=== PATIENT | male | born 1980 | race Caucasian/White ===

== ENCOUNTER 2024-11-22 20:43 | Inpatient (IN) | payer MEDICARE ==
[~2024-11-22] VITALS: Ht 185.4 cm; Wt 88.5 kg
[2024-11-23] MEDS: NS (Normal Saline) 0.9% 1,000 ML IV ONE (07:40)
[2024-11-23] MEDS ORDERED: JARD1TAB3 PO (09:26)
[2024-11-23] MEDS ORDERED: MELA3TAB30 PO (09:26)
[2024-11-23] MEDS ORDERED: ATOR80TA59 PO (09:26)
[2024-11-23] MEDS ORDERED: LEVE500T5 PO (09:26)
[2024-11-23] MEDS ORDERED: TORS5TAB2 PO (09:26)
[2024-11-23] MEDS ORDERED: TIRZ10PE SQ (09:26)
[2024-11-23] MEDS ORDERED: ENTR1TAB PO (09:26)
[2024-11-23] MEDS ORDERED: AMLO1TAB24 PO (09:26)
[2024-11-23] MEDS ORDERED: CALC1CAP31 PO (09:26)
[2024-11-23] MEDS ORDERED: CLAR10CA3 PO (09:26)
[2024-11-23] MEDS ORDERED: FAMO1TAB11 PO (09:26)
[2024-11-23] MEDS ORDERED: SENN-188 PO (09:26)
[2024-11-23] MEDS ORDERED: DICL20GE TOP (09:26)
[2024-11-23] MEDS ORDERED: DESV100T PO (09:26)
[2024-11-23] MEDS ORDERED: HYDR1CAP25 PO (09:26)
[2024-11-23] MEDS ORDERED: METO1TAB33 PO (09:26)
[2024-11-23] MEDS ORDERED: VASC1CAP2 PO (09:26)
[2024-11-23] MEDS ORDERED: METH-1165 PO (09:26)
[2024-11-23] MEDS ORDERED: SENN-52 PO (09:26)
[2024-11-23] MEDS ORDERED: ELIQ5TAB PO (09:26)
[2024-11-23] MEDS ORDERED: D-50TAB PO (09:26)
[2024-11-23] MEDS ORDERED: LOPE2TAB12 PO (09:26)
[2024-11-23] MEDS ORDERED: SENN-23 PO (09:26)
[2024-11-23] MEDS ORDERED: PEPT262S PO (09:26)
[2024-11-23] MEDS ORDERED: GABA-284 PO (09:26)
[2024-11-23] MEDS ORDERED: FINE10TA PO (09:26)
[2024-11-23] MEDS ORDERED: TRES1INJ2 SC (09:26)
[2024-11-23] MEDS ORDERED: FERR325T3 PO (09:26)
[2024-11-23] MEDS ORDERED: LACT1CAP53 PO (09:26)
[2024-11-23] MEDS ORDERED: HYDR-3713 PO (09:26)
[2024-11-23] MEDS ORDERED: PRAZ1CAP46 PO (09:26)
[2024-11-23] MEDS ORDERED: NOVOINJ3 SC (09:26)
[2024-11-23] MEDS ORDERED: HOME MED LIST COMPLETE! XX SCH (09:30)
[2024-11-23 09:41] LABS: BASO % 0.5 % (0.0-1.0); EOS % 0.1 % (0.0-3.0); HEMATOCRIT 41.5 % (42.0-52.0); LYMPH % 22.9 % (24.0-44.0); MEAN CORPUSCULAR HEMOGLOBIN 27.3 pg (27.0-33.0); MEAN CORPUSCULAR HGB CONC 33.7 g/dl (32.0-36.5); MEAN CORPUSCULAR VOLUME 80.9 fl (80.0-96.0); MONO # 0.5 10^3/uL (0.0-0.8); MONO % 5.8 % (2.0-8.0); NEUTROPHILS # 6.1 10^3/uL (1.5-8.5); NEUTROPHILS % 70.5 % (36.0-66.0); PLATELET COUNT, AUTOMATED 272 10^3/uL (150-450); RED BLOOD COUNT 5.13 10^6/uL (4.30-6.10); WHITE BLOOD COUNT 8.6 10^3/uL (4.0-10.0)
[2024-11-23 09:54] LABS: INR 1.24; PARTIAL THROMBOPLASTIN TIME 31.2 SECONDS (24.8-34.2); PROTHROMBIN TIME 15.9 SECONDS (12.5-14.5)
[2024-11-23 10:49] LABS: ALBUMIN 5.1 G/DL (3.2-5.2); BILIRUBIN,DIRECT 0.4 MG/DL (<0.4); BILIRUBIN,TOTAL 1.2 MG/DL (0.3-1.2); CALCIUM LEVEL 10.4 MG/DL (8.5-10.1); CREATININE FOR GFR 2.45 MG/DL (0.70-1.30); GLOMERULAR FILTRATION RATE 32.9 (>60); POTASSIUM SERUM 5.2 MMOL/L (3.5-5.1); TOTAL PROTEIN 7.9 G/DL (5.7-8.2)
[2024-11-23] MEDS ORDERED: PILL CUTTER 1 EACH XX PRN ×2 (10:50→12:55)
[2024-11-23 11:27] LABS: AMORPHOUS SEDIMENT SMALL (NEGATIVE); APPEARANCE, URINE HAZY (CLEAR); BACTERIA, URINE AUTO NEGATIVE (NEGATIVE); BILIRUBIN, URINE AUTO NEGATIVE (NEGATIVE); BLOOD, URINE BLOOD NEGATIVE (NEGATIVE); COLOR, URINE YELLOW (YELLOW); GLUCOSE, URINE (UA) AUTO 3+ mg/dL (NEGATIVE); KETONE, URINE AUTO 1+ mg/dL (NEGATIVE); LEUKOCYTE ESTERASE, URINE AUTO NEGATIVE (NEGATIVE); MUCUS, URINE SMALL (NEGATIVE); NITRITE, URINE AUTO NEGATIVE (NEGATIVE); PROTEIN, URINE AUTO 3+ mg/dL (NEGATIVE); RBC, URINE AUTO 1 /HPF (0-3); SPECIFIC GRAVITY URINE AUTO 1.017 (1.002-1.035); SQUAMOUS EPITHELIAL CELL UR AU 0 /HPF (0-6); UROBILINOGEN, URINE AUTO 0.2 mg/dL (0.0-2.0); WBC, URINE AUTO 0 /HPF (0-3)
[2024-11-23] MEDS: levETIRAcetam 250 MG TABLET PO ONE (11:35)
[2024-11-23] MEDS: amLODIPine 5 MG TAB PO ONE (11:37)
[2024-11-23] MEDS: APIXABAN 5 MG TAB PO ONE (11:37)
[2024-11-23] MEDS: TORSEMIDE 10 MG TABLET PO SCH (11:37)
[2024-11-23] MEDS: ENTRESTO 24-26 MG TABLET (SACUBITRIL/VALSARTAN) PO ONE (12:31)
[2024-11-23] MEDS ORDERED: DEXTROSE 50% 50 ML SYRINGE IV PRN (12:35)
[2024-11-23] MEDS ORDERED: SENNOSIDES/DOCUSATE SODIUM 8.6 MG/50MG TAB PO PRN (12:35)
[2024-11-23] MEDS ORDERED: GLUCAGON INJ 1 MG VIAL SC PRN (12:35)
[2024-11-23] MEDS ORDERED: GLUCOSE 4 GM CHEW PO PRN (12:35)
[2024-11-23 12:57] LABS: AMPHETAMINES LEVEL URINE NEGATIVE (NEGATIVE); BARBITURATES URINE NEGATIVE (NEGATIVE); BENZODIAZEPINES URINE NEGATIVE (NEGATIVE); COCAINE METABOLITE URINE NEGATIVE (NEGATIVE); METHADONE URINE NEGATIVE (NEGATIVE)
[2024-11-23 12:58] LABS: CANNABINOIDS URINE NEGATIVE (NEGATIVE); OPIATES URINE POSITIVE (NEGATIVE); PHENCYCLIDINE URINE NEGATIVE (NEGATIVE)
[2024-11-23 14:29] LABS: CHOLESTEROL RISK RATIO 3.6 (<5); HDL CHOLESTEROL 33.3 MG/DL (>40); LDL CHOLESTEROL 46.7 MG/DL (<100); NON-HDL-C 86.7 MG/DL; PERCENT SATURATION 14.9 % (19.7-50.0)
[2024-11-23 14:31] LABS: FERRITIN 453.9 NG/ML (10.5-307.3); FOLATE 14.43 NG/ML (>5.4)
[2024-11-23 14:38] LABS: HEMOGLOBIN A1c 5.7 % (4.0-6.0)
[2024-11-23 15:20] VITALS: BP 160/99; TEMP 97.7; O2SAT 100
[2024-11-23] MEDS: hydrOXYzine 25 MG TAB PO SCH (15:48)
[2024-11-23] MEDS: GABAPENTIN 400 MG CAP PO SCH (15:48)
[2024-11-23] MEDS: INSULIN LISPRO (NovoLOG) PER UNIT SC SCH ×2 (17:42→21:00)
[2024-11-23] MEDS: methocarbamoL 750 MG TAB PO PRN (17:42)
[2024-11-23 17:45] VITALS: BP 158/80
[2024-11-23 19:02] LABS: CK-MB VALUE MASS 1.6 NG/ML (<3.6)
[2024-11-23 19:03] LABS: MB/CK RELATIVE INDEX 0.39 (< OR =4)
[2024-11-23 19:47] VITALS: BP 142/98; TEMP 97.9; O2SAT 100
[2024-11-23 20:00] VITALS: O2SAT 100
[2024-11-23] MEDS: METOPROLOL SUCC. 100 MG *XL* TAB PO SCH (20:40)
[2024-11-23] MEDS: FERROUS SULFATE 325 MG TAB PO SCH (20:42)
[2024-11-23] MEDS: PRAZOSIN 1 MG CAP PO SCH (20:43)
[2024-11-23] MEDS: CALCITRIOL 0.25 MCG CAP (S0169) PO SCH (20:43)
[2024-11-23] MEDS: APIXABAN 5 MG TAB PO SCH (20:43)
[2024-11-24 03:18] LABS: CK-MB VALUE MASS 1.8 NG/ML (<3.6)
[2024-11-24 03:19] LABS: MB/CK RELATIVE INDEX 0.48 (< OR =4)
[2024-11-24 04:06] VITALS: BP 152/97; TEMP 97.7; O2SAT 99
[2024-11-24 06:30] LABS: HEMATOCRIT 34.9 % (42.0-52.0); HEMOGLOBIN 11.8 g/dl (13.5-17.5); MEAN CORPUSCULAR HEMOGLOBIN 27.3 pg (27.0-33.0); MEAN CORPUSCULAR HGB CONC 33.8 g/dl (32.0-36.5); MEAN CORPUSCULAR VOLUME 80.6 fl (80.0-96.0); PLATELET COUNT, AUTOMATED 215 10^3/uL (150-450); RED BLOOD COUNT 4.33 10^6/uL (4.30-6.10); WHITE BLOOD COUNT 6.1 10^3/uL (4.0-10.0)
[2024-11-24 07:11] LABS: CREATININE FOR GFR 2.08 MG/DL (0.70-1.30); MAGNESIUM LEVEL 2.8 MG/DL (1.8-2.4); POTASSIUM SERUM 4.2 MMOL/L (3.5-5.1)
[2024-11-24] MEDS ORDERED: ACETAMINOPHEN 325 MG TAB PO PRN (08:15)
[2024-11-24] MEDS: amLODIPine 5 MG TAB PO SCH (08:38)
[2024-11-24] MEDS: FAMOTIDINE 20 MG TAB PO SCH (08:39)
[2024-11-24] MEDS: DESVENLAFAXINE 50 MG PO SCH (08:39)
[2024-11-24] MEDS: ATORVASTATIN 20 MG TAB PO SCH (08:40)
[2024-11-24 11:01] LABS: CK-MB VALUE MASS 1.7 NG/ML (<3.6)
[2024-11-24 11:10] LABS: MB/CK RELATIVE INDEX 0.44 (< OR =4)
[2024-11-24 12:00] VITALS: BP 150/94; TEMP 97.7; O2SAT 94
[2024-11-24] MEDS: VITAMIN D 1,000 INTERNATIONAL UNITS TABLET PO SCH (12:20)
[2024-11-24 20:07] VITALS: BP 165/99; TEMP 97.7; O2SAT 100
[2024-11-25 03:34] VITALS: BP 159/98; TEMP 97.5; O2SAT 98
[2024-11-25 04:00] VITALS: O2SAT 98
[2024-11-25 06:45] LABS: HEMATOCRIT 37.9 % (42.0-52.0); HEMOGLOBIN 12.4 g/dl (13.5-17.5); MEAN CORPUSCULAR HEMOGLOBIN 26.5 pg (27.0-33.0); MEAN CORPUSCULAR HGB CONC 32.7 g/dl (32.0-36.5); PLATELET COUNT, AUTOMATED 237 10^3/uL (150-450); RED BLOOD COUNT 4.68 10^6/uL (4.30-6.10); WHITE BLOOD COUNT 6.7 10^3/uL (4.0-10.0)
[2024-11-25 07:14] LABS: CREATININE FOR GFR 1.88 MG/DL (0.70-1.30); GLOMERULAR FILTRATION RATE 45.2 (>60); MAGNESIUM LEVEL 2.5 MG/DL (1.8-2.4); POTASSIUM SERUM 4.1 MMOL/L (3.5-5.1)
[2024-11-25] MEDS: HYDROCODONE/ACETAMINOPHEN 5/325 MG TABLET PO PRN (09:22)
[2024-11-25 12:00] VITALS: BP 155/98; TEMP 97.5; O2SAT 99
[2024-11-25 20:00] VITALS: BP 153/97; TEMP 97.5; O2SAT 96
[2024-11-25] MEDS: levETIRAcetam 250 MG TABLET PO SCH (21:55)
[2024-11-25] MEDS: amLODIPine 5 MG TAB PO SCH (21:56)
[2024-11-25] MEDS: SENNOSIDES/DOCUSATE SODIUM 8.6 MG/50MG TAB PO SCH (21:58)
[2024-11-26 04:00] VITALS: BP 138/89; TEMP 97.3; O2SAT 94
[2024-11-26 05:40] LABS: HEMATOCRIT 33.9 % (42.0-52.0); HEMOGLOBIN 11.6 g/dl (13.5-17.5); MEAN CORPUSCULAR HEMOGLOBIN 27.3 pg (27.0-33.0); MEAN CORPUSCULAR HGB CONC 34.2 g/dl (32.0-36.5); MEAN CORPUSCULAR VOLUME 79.8 fl (80.0-96.0); PLATELET COUNT, AUTOMATED 213 10^3/uL (150-450); RED BLOOD COUNT 4.25 10^6/uL (4.30-6.10); WHITE BLOOD COUNT 5.6 10^3/uL (4.0-10.0)
[2024-11-26 06:04] LABS: CALCIUM LEVEL 8.9 MG/DL (8.5-10.1); CREATININE FOR GFR 1.77 MG/DL (0.70-1.30); GLOMERULAR FILTRATION RATE 48.6 (>60); POTASSIUM SERUM 4.3 MMOL/L (3.5-5.1)
[2024-11-26] MEDS: LanTUS (INSULIN GLARGINE INJ) 1 UNITS/0.01 ML SC SCH (09:26)
[2024-11-26 12:00] VITALS: BP 128/86; TEMP 97.5; O2SAT 98
[2024-11-26 19:35] VITALS: BP 160/99; TEMP 97.9; O2SAT 98
[2024-11-27 04:13] VITALS: BP 153/98; TEMP 97.7; O2SAT 96
[2024-11-27 06:01] LABS: HEMATOCRIT 35.2 % (42.0-52.0); HEMOGLOBIN 11.9 g/dl (13.5-17.5); MEAN CORPUSCULAR HEMOGLOBIN 26.8 pg (27.0-33.0); MEAN CORPUSCULAR HGB CONC 33.8 g/dl (32.0-36.5); MEAN CORPUSCULAR VOLUME 79.3 fl (80.0-96.0); PLATELET COUNT, AUTOMATED 230 10^3/uL (150-450); RED BLOOD COUNT 4.44 10^6/uL (4.30-6.10); WHITE BLOOD COUNT 7.1 10^3/uL (4.0-10.0)
[2024-11-27 06:40] LABS: CALCIUM LEVEL 8.8 MG/DL (8.5-10.1); CREATININE FOR GFR 1.89 MG/DL (0.70-1.30); GLOMERULAR FILTRATION RATE 44.9 (>60); POTASSIUM SERUM 4.3 MMOL/L (3.5-5.1)
[2024-11-27 12:00] VITALS: BP 145/91; TEMP 97.7; O2SAT 98
[2024-11-27] MEDS: TORSEMIDE 20 MG TAB PO ONE (15:32)
[2024-11-27 21:00] VITALS: BP 143/91; TEMP 97.7; O2SAT 98
[2024-11-27 21:27] VITALS: BP 141/90; TEMP 97.5; O2SAT 96
[2024-11-27] MEDS: ENTRESTO 24-26 MG TABLET (SACUBITRIL/VALSARTAN) PO SCH (22:32)
[2024-11-27] MEDS: LanTUS (INSULIN GLARGINE INJ) 1 UNITS/0.01 ML SC SCH (22:35)
[2024-11-28 03:22] VITALS: BP 117/76; TEMP 97.5; O2SAT 96
[2024-11-28 06:29] LABS: HEMOGLOBIN 11.6 g/dl (13.5-17.5); MEAN CORPUSCULAR HEMOGLOBIN 26.9 pg (27.0-33.0); MEAN CORPUSCULAR HGB CONC 34.1 g/dl (32.0-36.5); MEAN CORPUSCULAR VOLUME 78.9 fl (80.0-96.0); PLATELET COUNT, AUTOMATED 205 10^3/uL (150-450); RED BLOOD COUNT 4.31 10^6/uL (4.30-6.10); WHITE BLOOD COUNT 5.4 10^3/uL (4.0-10.0)
[2024-11-28 06:51] LABS: CALCIUM LEVEL 8.7 MG/DL (8.5-10.1); CREATININE FOR GFR 2.21 MG/DL (0.70-1.30); GLOMERULAR FILTRATION RATE 37.2 (>60); POTASSIUM SERUM 4.1 MMOL/L (3.5-5.1)
[2024-11-28] MEDS ORDERED: ELIQ5TAB PO (07:55)
[2024-11-28] MEDS ORDERED: PRAZ1CAP46 PO (07:55)
[2024-11-28] MEDS ORDERED: AMLO1TAB24 PO (07:55)
[2024-11-28] MEDS ORDERED: HYDR1CAP25 PO ×2 (07:55→19:05)
[2024-11-28] MEDS ORDERED: DESV100T PO (07:55)
[2024-11-28] MEDS ORDERED: FAMO1TAB11 PO (07:55)
[2024-11-28] MEDS ORDERED: GABA-284 PO ×2 (07:55→19:03)
[2024-11-28] MEDS ORDERED: METO1TAB33 PO (07:55)
[2024-11-28] MEDS ORDERED: LEVE500T5 PO (07:55)
[2024-11-28] MEDS: LanTUS (INSULIN GLARGINE INJ) 1 UNITS/0.01 ML SC SCH (08:55)
[2024-11-28 08:57] VITALS: BP 113/74
[2024-11-28] MEDS: amLODIPine 5 MG TAB PO SCH (08:57)
[2024-11-28] MEDS ORDERED: LanTUS (INSULIN GLARGINE INJ) 1 UNITS/0.01 ML SC SCH (09:00)
[2024-11-28] MEDS: TORSEMIDE 10 MG TABLET PO SCH (09:00)
[2024-11-28 12:00] VITALS: BP 126/85; TEMP 97.7; O2SAT 96
[2024-11-28] MEDS ORDERED: FAMO20TA PO (19:01)
[2024-11-28] MEDS ORDERED: KEPP1TAB PO (19:07)
[2024-11-28] MEDS ORDERED: PRAZ1CAP PO (19:10)
== END 2024-11-28 14:19 | disposition home or self-care (01) | DRG 74 ==
LOC: M ED 20:43 → EDBD 20:43 → M ED INP 11-23 12:33 → M MSPAV 11-23 15:17
PROVIDERS: ADMIT Family Medicine; ATTEND Internal Medicine Nephrology
PROC: B246ZZZ Ultrasonography of Right and Left Heart (ICD-10-PCS; principal; 2024-11-23)
DX: G61.81 Chronic inflammatory demyelinating polyneuritis (principal); I50.32 Chronic diastolic (congestive) heart failure; I13.0 Hypertensive heart and chronic kidney disease with heart failure and stage 1 through stage 4 chronic kidney disease, or unspecified chronic kidney disease; H33.23 Serous retinal detachment, bilateral; N18.4 Chronic kidney disease, stage 4 (severe); I69.351 Hemiplegia and hemiparesis following cerebral infarction affecting right dominant side; Z59.02 Unsheltered homelessness; Z60.8 Other problems related to social environment; I69.398 Other sequelae of cerebral infarction; I25.10 Atherosclerotic heart disease of native coronary artery without angina pectoris; E11.22 Type 2 diabetes mellitus with diabetic chronic kidney disease; M62.421 Contracture of muscle, right upper arm; N31.9 Neuromuscular dysfunction of bladder, unspecified; G89.4 Chronic pain syndrome; I69.318 Other symptoms and signs involving cognitive functions following cerebral infarction; R20.0 Anesthesia of skin; S12.9XXS Fracture of neck, unspecified, sequela; I25.5 Ischemic cardiomyopathy; F32.9 Major depressive disorder, single episode, unspecified; E78.5 Hyperlipidemia, unspecified; M54.12 Radiculopathy, cervical region; E11.51 Type 2 diabetes mellitus with diabetic peripheral angiopathy without gangrene; F41.1 Generalized anxiety disorder; F43.10 Post-traumatic stress disorder, unspecified; G47.33 Obstructive sleep apnea (adult) (pediatric); E11.319 Type 2 diabetes mellitus with unspecified diabetic retinopathy without macular edema; E11.40 Type 2 diabetes mellitus with diabetic neuropathy, unspecified; Z87.820 Personal history of traumatic brain injury; Z95.5 Presence of coronary angioplasty implant and graft; Z79.01 Long term (current) use of anticoagulants; Z87.891 Personal history of nicotine dependence; Z82.49 Family history of ischemic heart disease and other diseases of the circulatory system; Z82.3 Family history of stroke; Z91.013 Allergy to seafood; Z79.891 Long term (current) use of opiate analgesic; Z79.85 Long-term (current) use of injectable non-insulin antidiabetic drugs; Z79.899 Other long term (current) drug therapy

== ENCOUNTER 2024-11-28 17:08 | Observation (INO) | payer MEDICARE ==
[~2024-11-28] VITALS: Ht 185.4 cm; Wt 98.1 kg
[~2024-11-28 17:08] MED LIST: AMLO1TAB24 PO; ATOR80TA59 PO; CALC1CAP31 PO; CLAR10CA3 PO; D-50TAB PO; DESV100T PO; DICL20GE TOP; ELIQ5TAB PO; ENTR1TAB PO; FAMO1TAB11 PO; FERR325T3 PO; FINE10TA PO; GABA-284 PO; HYDR-3713 PO; HYDR1CAP25 PO; JARD1TAB3 PO; LACT1CAP53 PO; LEVE500T5 PO; LOPE2TAB12 PO; MELA3TAB30 PO; METH-1165 PO; METO1TAB33 PO; NOVOINJ3 SC; PEPT262S PO; PRAZ1CAP46 PO; SENN-188 PO; SENN-23 PO; SENN-52 PO; TIRZ10PE SQ; TORS5TAB2 PO; TRES1INJ2 SC; VASC1CAP2 PO
[2024-11-28] MEDS ORDERED: FAMO20TA PO (19:01)
[2024-11-28] MEDS ORDERED: GABA-284 PO (19:03)
[2024-11-28] MEDS ORDERED: HYDR1CAP25 PO (19:05)
[2024-11-28] MEDS ORDERED: KEPP1TAB PO (19:07)
[2024-11-28] MEDS ORDERED: PRAZ1CAP PO (19:10)
[2024-11-28] MEDS ORDERED: HOME MED LIST COMPLETE! XX SCH (19:15)
[2024-11-28 20:35] VITALS: BP 142/91; TEMP 97.7; O2SAT 100
[2024-11-28] MEDS ORDERED: DEXTROSE 50% 50 ML SYRINGE IV PRN (20:45)
[2024-11-28] MEDS ORDERED: GLUCAGON INJ 1 MG VIAL SC PRN (20:45)
[2024-11-28] MEDS ORDERED: GLUCOSE 4 GM CHEW PO PRN (20:45)
[2024-11-28] MEDS: FERROUS SULFATE 325 MG TAB PO SCH (21:39)
[2024-11-28] MEDS: GABAPENTIN 400 MG CAP PO SCH (21:39)
[2024-11-28] MEDS: hydrOXYzine 25 MG TAB PO SCH (21:40)
[2024-11-28] MEDS: METOPROLOL SUCC. 50 MG *XL* TAB PO SCH (21:40)
[2024-11-28] MEDS: APIXABAN 5 MG TAB PO SCH (21:40)
[2024-11-28] MEDS: levETIRAcetam 250 MG TABLET PO SCH (21:40)
[2024-11-28] MEDS: PRAZOSIN 1 MG CAP PO SCH (21:41)
[2024-11-28] MEDS: ENTRESTO 24-26 MG TABLET (SACUBITRIL/VALSARTAN) PO SCH (21:51)
[2024-11-29 05:32] VITALS: BP 114/76; TEMP 97.8; O2SAT 96
[2024-11-29 06:18] LABS: HEMATOCRIT 33.8 % (42.0-52.0); HEMOGLOBIN 11.3 g/dl (13.5-17.5); MEAN CORPUSCULAR HGB CONC 33.4 g/dl (32.0-36.5); MEAN CORPUSCULAR VOLUME 80.7 fl (80.0-96.0); PLATELET COUNT, AUTOMATED 207 10^3/uL (150-450); RED BLOOD COUNT 4.19 10^6/uL (4.30-6.10); WHITE BLOOD COUNT 6.4 10^3/uL (4.0-10.0)
[2024-11-29 06:41] LABS: ALBUMIN 3.6 G/DL (3.2-5.2); BILIRUBIN,TOTAL 0.6 MG/DL (0.3-1.2); CALCIUM LEVEL 8.7 MG/DL (8.5-10.1); CREATININE FOR GFR 2.07 MG/DL (0.70-1.30); GLOMERULAR FILTRATION RATE 40.3 (>60); TOTAL PROTEIN 5.9 G/DL (5.7-8.2)
[2024-11-29 08:00] VITALS: BP 117/77; TEMP 97.5
[2024-11-29] MEDS: DESVENLAFAXINE 50 MG PO SCH (08:58)
[2024-11-29] MEDS: ATORVASTATIN 20 MG TAB PO SCH (08:59)
[2024-11-29] MEDS: FAMOTIDINE 20 MG TAB PO SCH (08:59)
[2024-11-29] MEDS: amLODIPine 5 MG TAB PO SCH (09:00)
[2024-11-29] MEDS: LanTUS (INSULIN GLARGINE INJ) 1 UNITS/0.01 ML SC SCH (09:00)
[2024-11-29 12:00] VITALS: BP 124/80; TEMP 97.5
[2024-11-29 20:26] VITALS: BP 133/83
[2024-11-30 05:43] VITALS: BP 135/90; TEMP 97.5; O2SAT 98
[2024-11-30] MEDS: LanTUS (INSULIN GLARGINE INJ) 1 UNITS/0.01 ML SC SCH (08:28)
[2024-11-30 12:26] VITALS: BP 128/88; TEMP 98; O2SAT 98
[2024-11-30 19:46] VITALS: BP 126/88; TEMP 97.7; O2SAT 98
[2024-11-30] MEDS: CALCITRIOL 0.25 MCG CAP (S0169) PO SCH (21:30)
[2024-12-01 04:27] VITALS: BP 117/74; TEMP 97.7; O2SAT 96
[2024-12-02 04:51] VITALS: BP 135/85; TEMP 97.7; O2SAT 98
[2024-12-02 14:26] VITALS: BP 135/86; TEMP 97.9; O2SAT 98
[2024-12-02 20:57] VITALS: BP 142/87; TEMP 97.5; O2SAT 99
[2024-12-03 04:45] VITALS: BP 144/95; TEMP 97.8; O2SAT 99
[2024-12-03 08:24] VITALS: BP 139/84
[2024-12-03] MEDS ORDERED: LORATADINE 10 MG TAB PO PRN (12:25)
[2024-12-03] MEDS: methocarbamoL 750 MG TAB PO PRN (12:38)
[2024-12-03] MEDS: ACETAMINOPHEN 325 MG TAB PO PRN (12:39)
[2024-12-04 04:59] VITALS: BP 124/84; TEMP 98.7; O2SAT 96
[2024-12-04] MEDS: LanTUS (INSULIN GLARGINE INJ) 1 UNITS/0.01 ML SC SCH (08:59)
[2024-12-04 20:22] VITALS: BP 160/94
[2024-12-05 04:09] VITALS: BP 146/96; TEMP 97.2; O2SAT 100
== END 2024-12-05 04:40 ==
LOC: M ED 17:08 → M ED INP 17:09 → M MS5PR 20:25
PROVIDERS: ADMIT Internal Medicine Nephrology; ATTEND Internal Medicine Nephrology
DX: N18.4 Chronic kidney disease, stage 4 (severe) (principal); E11.319 Type 2 diabetes mellitus with unspecified diabetic retinopathy without macular edema; E11.42 Type 2 diabetes mellitus with diabetic polyneuropathy; E11.21 Type 2 diabetes mellitus with diabetic nephropathy; G61.81 Chronic inflammatory demyelinating polyneuritis; H33.23 Serous retinal detachment, bilateral; Z60.8 Other problems related to social environment; Z59.02 Unsheltered homelessness; I25.10 Atherosclerotic heart disease of native coronary artery without angina pectoris; Z95.5 Presence of coronary angioplasty implant and graft; I25.2 Old myocardial infarction; I25.5 Ischemic cardiomyopathy; I50.32 Chronic diastolic (congestive) heart failure; I13.0 Hypertensive heart and chronic kidney disease with heart failure and stage 1 through stage 4 chronic kidney disease, or unspecified chronic kidney disease; E11.22 Type 2 diabetes mellitus with diabetic chronic kidney disease; I69.351 Hemiplegia and hemiparesis following cerebral infarction affecting right dominant side; Z87.820 Personal history of traumatic brain injury; Z98.1 Arthrodesis status; S12.9XXS Fracture of neck, unspecified, sequela; X58.XXXS Exposure to other specified factors, sequela; Z87.81 Personal history of (healed) traumatic fracture; M54.12 Radiculopathy, cervical region; G89.4 Chronic pain syndrome; F32.A Depression, unspecified; E78.5 Hyperlipidemia, unspecified; I73.9 Peripheral vascular disease, unspecified; F41.1 Generalized anxiety disorder; F43.10 Post-traumatic stress disorder, unspecified; F51.5 Nightmare disorder; G47.00 Insomnia, unspecified; G47.33 Obstructive sleep apnea (adult) (pediatric); M62.838 Other muscle spasm; Z82.49 Family history of ischemic heart disease and other diseases of the circulatory system; Z82.3 Family history of stroke; Z91.013 Allergy to seafood; Z79.899 Other long term (current) drug therapy; Z79.01 Long term (current) use of anticoagulants; Z79.891 Long term (current) use of opiate analgesic; Z79.85 Long-term (current) use of injectable non-insulin antidiabetic drugs
CPT/HCPCS: 36415; 80053; 85027; 97165; J1815